=== PATIENT | female | born 1980 | race Caucasian/White ===

== ENCOUNTER 2017-01-24 08:26 | Day surgery (SDC) | payer BC, OTHER ==
[~2017-01-24] VITALS: Ht 175.3 cm; Wt 76.2 kg
[2017-01-24] MEDS ORDERED: ROCURONIUM BROMIDE 10 MG/ML (ZEMURON) IV ONE (10:40)
[2017-01-24] MEDS ORDERED: SEVOFLURANE 15 MIN GAS INH ONE (10:40)
[2017-01-24] MEDS ORDERED: KETOROLAC TROMETHAMINE 30 MG VIAL IVP ONE (10:40)
[2017-01-24] MEDS ORDERED: ONDANSETRON HCL 4 MG/2 ML VIAL IVP ONE (10:40)
[2017-01-24] MEDS ORDERED: fentaNYL CITRATE 250 MCG/5 ML AMP IV ONE (10:40)
[2017-01-24] MEDS ORDERED: NS IRRIG SOLN 1000 ML IR ONE (10:40)
[2017-01-24] MEDS ORDERED: MIDAZOLAM HCL 5 MG/5 ML VIAL IVP ONE (10:40)
[2017-01-24] MEDS ORDERED: PROPOFOL 200MG/ 20ML VIAL (DIPRIVAN) IV ONE (10:40)
[2017-01-24] MEDS ORDERED: DEXAMETHASONE SOD PHOSPHATE 4 MG/ML VIAL IVP ONE (10:40)
[2017-01-24] MEDS ORDERED: LR 1,000 ML IV.SOLN IV ONE (10:40)
[2017-01-24] MEDS ORDERED: LR 1,000 ML IV SCH (11:29)
[2017-01-24] MEDS ORDERED: HYDROmorphone 2 MG/ML VIAL IVP PRN ×2 (11:30)
[2017-01-24] MEDS ORDERED: HYDROmorphone 1 MG INJ. 1 MG/ML AMPUL IVP PRN ×2 (11:30→12:00)
[2017-01-24] MEDS ORDERED: MEPERIDINE HCL/PF 25 MG/ML DISP.SYRIN IVP PRN (11:30)
[2017-01-24] MEDS ORDERED: D5/0.45 NS 1,000 ML IV SCH (11:50)
[2017-01-24] MEDS ORDERED: HYDROcodone/ACETAMIN 5-325 MG TAB (NORCO/ VICODIN) PO PRN ×2 (12:00)
[2017-01-24 12:40] VITALS: BP_SYST 103
[2017-01-24] MEDS ORDERED: HYDROcodone/ACETAMIN 5-325 MG TAB (NORCO/ VICODIN) ONE (13:16)
== END 2017-01-24 14:05 | disposition home or self-care (01) ==
LOC: SDS 08:26 → SMU 08:27 → SDS 14:05
PROVIDERS: ATTEND Colon & Rectal Surgery
DX: N60.12 Diffuse cystic mastopathy of left breast (principal); Z98.890 Other specified postprocedural states; Z90.710 Acquired absence of both cervix and uterus; R00.1 Bradycardia, unspecified
CPT/HCPCS: 19120; 88305; J1100; J1885; J2250; J2405; J2704; J3010; J7120; 88304